=== PATIENT | male | born 1990 | race Hispanic/Latino ===

== ENCOUNTER 2021-09-10 23:07 | Emergency (ER) | payer OTHER ==
[2021-09-10 23:16] VITALS: BP 125/70; PULSE 107; O2SAT 97
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
== END 2021-09-10 23:41 ==
LOC: EEVIPCON 23:07 → ED 23:07
DX: Z02.89 Encounter for other administrative examinations (principal); F10.120 Alcohol abuse with intoxication, uncomplicated
CPT/HCPCS: 99283